=== PATIENT | male | born 1955 | race African-American/Black ===

== ENCOUNTER 2020-07-19 16:31 | Emergency (ER) | payer MEDICAID, OTHER ==
[~2020-07-19] VITALS: Ht 182.9 cm; Wt 93.9 kg
[2020-07-19] MEDS ORDERED: ASPirin 81 mg TAB PO ONE (16:45)
[2020-07-19 16:48] VITALS: BP 124/91
[2020-07-19 17:40] LABS: Basophils # (auto) 0.1 10 ^3/uL (0-0.2); Basophils % (auto) 1.2 % (0.0-2.0); Eosinophils # (auto) 0.4 10 ^3/uL (0-0.8); Eosinophils % (auto) 6.9 % (0.0-7.0); Hematocrit 39.4 % (41.0-53.0); Hemoglobin 13.1 g/dL (13.5-17.5); Lymphocytes # (auto) 1.7 10 ^3/uL (0.4-5.4); Lymphocytes % (auto) 31.8 % (10.0-50.0); Mean Corpuscular Hemoglobin 30.3 pg (28.0-32.0); Mean Corpuscular Hgb Conc. 33.2 g/dL (32.0-36.0); Mean Corpuscular Volume 91.4 fL (80.0-100.0); Monocytes # (auto) 0.3 10 ^3/uL (0-1.3); Monocytes % (auto) 6.2 % (0.0-12.0); Neutrophils # (auto) 2.8 10 ^3/uL (1.6-8.6); Neutrophils % (auto) 53.9 % (37.0-80.0); Nucleated Red Blood Cells % 0.1 %; Platelet Count (auto) 188 10^3/uL (140-450); Red Blood Cells 4.31 10^6/uL (4.5-5.90); Red Cell Distribution Width 13.3 % (11.8-14.3); White Blood Cell 5.2 10^3/uL (4.4-10.8)
[2020-07-19 17:59] LABS: Albumin 3.6 g/dL (3.4-5.0); Anion Gap 3 (5-15); Blood Urea Nitrogen 19 mg/dL (7-18); Calcium 8.4 mg/dL (8.5-10.1); Carbon Dioxide 31 mmol/L (21-32); Chloride 106 mmol/L (98-107); Glucose 110 mg/dL (74-106); Sodium 140 mmol/L (136-145)
[2020-07-19 18:06] LABS: Alanine Aminotransferase 26 U/L (16-61); Alkaline Phosphatase 71 U/L (45-117); Aspartate Aminotransferase 16 U/L (15-37); BUN/Creatinine Ratio 15.2; Bilirubin, Total 0.4 mg/dL (0.2-1.0); GFR African American 75 mL/min; GFR Non-African American 62 mL/min; Total Protein 7.3 g/dL (6.4-8.2)
== END 2020-07-19 19:22 | disposition home or self-care (01) ==
LOC: ER 16:31
DX: R07.89 Other chest pain (principal); I10 Essential (primary) hypertension
CPT/HCPCS: 36415; 71046; 80053; 83880; 84484; 85025; 85379; 93005

== ENCOUNTER 2020-08-13 05:40 | Emergency (ER) | payer MEDICAID ==
[~2020-08-13] VITALS: Ht 182.9 cm; Wt 93.9 kg
[2020-08-13 07:34] VITALS: BP 148/107
== END 2020-08-13 07:44 | disposition home or self-care (01) ==
LOC: ER 05:40
DX: R06.02 Shortness of breath (principal); I10 Essential (primary) hypertension; Z20.822 Contact with and (suspected) exposure to COVID-19
CPT/HCPCS: 36415; 71045; 87426; 99284; C9803; U0003

== ENCOUNTER 2020-09-09 10:09 | Inpatient (IN) | payer MEDICAID ==
[~2020-09-09] VITALS: Ht 182.9 cm; Wt 93.3 kg
[2020-09-09] MEDS ORDERED: methylPREDNISolone SOD SUCC 125 MG/2 ML VL IV ONE (10:15)
[2020-09-09 10:35] LABS: Basophils # (auto) 0.1 10 ^3/uL (0-0.2); Basophils % (auto) 1.1 % (0.0-2.0); Eosinophils # (auto) 0.2 10 ^3/uL (0-0.8); Eosinophils % (auto) 3.6 % (0.0-7.0); Hematocrit 43.2 % (41.0-53.0); Hemoglobin 14.4 g/dL (13.5-17.5); Lymphocytes # (auto) 1.6 10 ^3/uL (0.4-5.4); Lymphocytes % (auto) 24.7 % (10.0-50.0); Mean Corpuscular Hemoglobin 30.5 pg (28.0-32.0); Mean Corpuscular Hgb Conc. 33.3 g/dL (32.0-36.0); Mean Corpuscular Volume 91.6 fL (80.0-100.0); Monocytes # (auto) 0.4 10 ^3/uL (0-1.3); Monocytes % (auto) 6.3 % (0.0-12.0); Neutrophils % (auto) 64.3 % (37.0-80.0); Nucleated Red Blood Cells % 0.2 %; Red Blood Cells 4.71 10^6/uL (4.5-5.90); Red Cell Distribution Width 13.4 % (11.8-14.3); White Blood Cell 6.3 10^3/uL (4.4-10.8)
[2020-09-09 11:08] LABS: Albumin 3.6 g/dL (3.4-5.0); Anion Gap 5 (5-15); Blood Urea Nitrogen 18 mg/dL (7-18); Calcium 8.2 mg/dL (8.5-10.1); Carbon Dioxide 27 mmol/L (21-32); Chloride 105 mmol/L (98-107); GFR African American 72 mL/min; GFR Non-African American 60 mL/min; Glucose 107 mg/dL (74-106); Potassium 3.9 mmol/L (3.5-5.1); Sodium 137 mmol/L (136-145)
[2020-09-09 11:13] LABS: Alanine Aminotransferase 46 U/L (16-61); Alkaline Phosphatase 75 U/L (45-117); Aspartate Aminotransferase 21 U/L (15-37); Bilirubin, Total 0.9 mg/dL (0.2-1.0); Total Protein 7.4 g/dL (6.4-8.2)
[2020-09-09] MEDS ORDERED: FUROSEMIDE 40 MG/4 ML VIAL IV ONE (12:30)
[2020-09-09] MEDS ORDERED: ONDANSETRON HCL 4 MG/2 ML VIAL IV PRN (14:30)
[2020-09-09] MEDS ORDERED: NITROGLYCERIN 0.4 MG SL TAB SL PRN (14:30)
[2020-09-09] MEDS ORDERED: MORPHINE SULFATE INJECTION 2 MG/ML SYRG IV PRN (14:30)
[2020-09-09] MEDS ORDERED: TEMAZEPAM 15 MG CAP PO PRN (14:30)
[2020-09-09] MEDS ORDERED: SODIUM CHLORIDE 0.9% 1,000 ML IV SCH (14:30)
[2020-09-09] MEDS ORDERED: ACETAMINOPHEN 325 MG TAB PO PRN (14:30)
[2020-09-09 15:46] LABS: Urine Bacteria FEW /hpf (None Seen); Urine Blood Negative /uL (Negative); Urine Mucus FEW (None Seen); Urine Specific Gravity 1.025 (1.001-1.035); Urine WBC <1 /hpf (0 - 3)
[2020-09-09] MEDS ORDERED: cloNIDine HCL 0.1 MG TAB PO PRN (16:15)
[2020-09-09] MEDS: PIPERACILLIN-TAZOB 3.375GM 100 ML IV SCH ×2 (18:12→23:59)
[2020-09-09] MEDS: FUROSEMIDE 20 MG/2 ML VIAL IV SCH (18:12)
[2020-09-09 18:24] LABS: Amphetamine Screen, Urine NEGATIVE (NEGATIVE); Barbiturate Scree,Urine NEGATIVE (NEGATIVE); Benzodiazephine Screen, Urine NEGATIVE (NEGATIVE); Cannabinoid Screen, Urine NEGATIVE (NEGATIVE); Cocaine Screen, Urine NEGATIVE (NEGATIVE); Opiate Scree,Urine NEGATIVE (NEGATIVE); Phencyclidine Screen, Urine NEGATIVE (NEGATIVE)
[2020-09-09] MEDS: BUDESONIDE (INHALATION) 0.5 MG/2 ML NEB NEB SCH (18:54)
[2020-09-09] MEDS ORDERED: FAMOTIDINE 20 MG TAB PO SCH (22:00)
[2020-09-09] MEDS: POTASSIUM CHLORIDE 8 MEQ TAB PO SCH (22:26)
[2020-09-09] MEDS: ASCORBIC ACID 500 MG TAB PO SCH (22:26)
[2020-09-09] MEDS: methylPREDNISolone SOD SUCC 40 MG/ML VL IV SCH (22:27)
[2020-09-09 22:48] VITALS: BP 129/81
[2020-09-09 22:56] VITALS: BP 129/81
[2020-09-10] MEDS ORDERED: AMLO-496 PO (03:27)
[2020-09-10] MEDS: FUROSEMIDE 20 MG/2 ML VIAL IV SCH ×2 (05:30→17:52)
[2020-09-10] MEDS: PIPERACILLIN-TAZOB 3.375GM 100 ML IV SCH ×3 (05:31→17:53)
[2020-09-10 05:45] VITALS: BP 115/69
[2020-09-10 06:36] LABS: Basophils # (auto) 0 10 ^3/uL (0-0.2); Basophils % (auto) 0.3 % (0.0-2.0); Eosinophils # (auto) 0 10 ^3/uL (0-0.8); Hematocrit 39.7 % (41.0-53.0); Hemoglobin 13.3 g/dL (13.5-17.5); Lymphocytes # (auto) 0.6 10 ^3/uL (0.4-5.4); Lymphocytes % (auto) 8.3 % (10.0-50.0); Mean Corpuscular Hemoglobin 30.5 pg (28.0-32.0); Mean Corpuscular Hgb Conc. 33.5 g/dL (32.0-36.0); Mean Corpuscular Volume 90.9 fL (80.0-100.0); Monocytes # (auto) 0.1 10 ^3/uL (0-1.3); Monocytes % (auto) 1.8 % (0.0-12.0); Neutrophils # (auto) 6.2 10 ^3/uL (1.6-8.6); Neutrophils % (auto) 89.6 % (37.0-80.0); Red Blood Cells 4.37 10^6/uL (4.5-5.90); Red Cell Distribution Width 13.9 % (11.8-14.3); White Blood Cell 6.9 10^3/uL (4.4-10.8)
[2020-09-10 06:56] LABS: Potassium 3.6 mmol/L (3.5-5.1)
[2020-09-10 07:13] LABS: Albumin 3.1 g/dL (3.4-5.0); BUN/Creatinine Ratio 19.4; Bilirubin, Total 0.7 mg/dL (0.2-1.0); Calcium 7.9 mg/dL (8.5-10.1); Total Protein 6.7 g/dL (6.4-8.2)
[2020-09-10 08:00] VITALS: BP 121/64
[2020-09-10 08:54] VITALS: BP 112/85
[2020-09-10] MEDS: methylPREDNISolone SOD SUCC 40 MG/ML VL IV SCH ×2 (09:09→22:26)
[2020-09-10] MEDS: ASPirin 81 mg TAB PO SCH (09:10)
[2020-09-10] MEDS: POTASSIUM CHLORIDE 8 MEQ TAB PO SCH ×2 (09:10→22:26)
[2020-09-10] MEDS: FAMOTIDINE 20 MG TAB PO SCH (09:11)
[2020-09-10] MEDS: ASCORBIC ACID 500 MG TAB PO SCH (09:12)
[2020-09-10] MEDS: ENOXAPARIN SOD 40 MG/0.4 ML SYRINGE SC SCH (09:12)
[2020-09-10] MEDS ORDERED: ENOXAPARIN SOD 30 MG/0.3 ML SYRINGE SC SCH (10:00)
[2020-09-10] MEDS ORDERED: ZINC SULFATE 220mg CAP or TAB PO SCH (10:00)
[2020-09-10] MEDS: BUDESONIDE (INHALATION) 0.5 MG/2 ML NEB NEB SCH ×2 (10:13→19:09)
[2020-09-10] MEDS ORDERED: POTASSIUM CHL 20 Meq TABLET PO ONE (12:30)
[2020-09-10 13:00] VITALS: BP_SYST 121; BP_SYST 127; BP_DIAS 64; BP_DIAS 71
[2020-09-10 17:00] VITALS: BP 114/69
[2020-09-10 21:00] VITALS: BP 107/74
[2020-09-11] MEDS: PIPERACILLIN-TAZOB 3.375GM 100 ML IV SCH ×3 (00:11→12:36)
[2020-09-11 05:00] VITALS: BP 114/82
[2020-09-11] MEDS: FUROSEMIDE 20 MG/2 ML VIAL IV SCH (05:35)
[2020-09-11] MEDS: BUDESONIDE (INHALATION) 0.5 MG/2 ML NEB NEB SCH (06:12)
[2020-09-11 06:58] LABS: Potassium 4.3 mmol/L (3.5-5.1)
[2020-09-11 07:08] LABS: BUN/Creatinine Ratio 18.3; Calcium 8.7 mg/dL (8.5-10.1); Magnesium 2.5 mg/dL (1.6-2.6)
[2020-09-11 09:00] VITALS: BP 118/88
[2020-09-11] MEDS: ASPirin 81 mg TAB PO SCH (10:01)
[2020-09-11] MEDS: methylPREDNISolone SOD SUCC 40 MG/ML VL IV SCH (10:01)
[2020-09-11] MEDS: FAMOTIDINE 20 MG TAB PO SCH (10:01)
[2020-09-11] MEDS: ENOXAPARIN SOD 40 MG/0.4 ML SYRINGE SC SCH (10:01)
[2020-09-11] MEDS: POTASSIUM CHLORIDE 8 MEQ TAB PO SCH (10:01)
[2020-09-11 13:00] VITALS: BP 121/86
[2020-09-11] MEDS ORDERED: FURO1TAB31 PO (13:47)
[2020-09-11] MEDS ORDERED: SPIR25TA PO (13:47)
[2020-09-11] MEDS ORDERED: ALBU108A5 IN (13:47)
[2020-09-11] MEDS ORDERED: ATOR20TA50 PO (13:47)
[2020-09-11] MEDS ORDERED: ASPI1TAB20 PO (13:47)
[2020-09-11] MEDS ORDERED: CAR3125T PO (13:47)
[2020-09-11 17:00] VITALS: BP 118/85
[2020-12-02] MEDS ORDERED: FURO1TAB31 PO (17:17)
== END 2020-09-11 18:00 | disposition home or self-care (01) | DRG 139 ==
LOC: ER 10:09 → TELE 10:10 → DOU IN ADS 20:23
PROVIDERS: ADMIT Hospitalist; ATTEND Hospitalist
DX: J18.9 Pneumonia, unspecified organism (principal); I50.43 Acute on chronic combined systolic (congestive) and diastolic (congestive) heart failure; I11.0 Hypertensive heart disease with heart failure; I43 Cardiomyopathy in diseases classified elsewhere; J91.8 Pleural effusion in other conditions classified elsewhere; Z20.822 Contact with and (suspected) exposure to COVID-19; R06.03 Acute respiratory distress; Z80.9 Family history of malignant neoplasm, unspecified; Z82.49 Family history of ischemic heart disease and other diseases of the circulatory system; Z83.3 Family history of diabetes mellitus
CPT/HCPCS: 36415; 71250; 80048; 80053; 80307; 81001; 83735; 83880; 84484; 85025; 87086; 87426; 93005; 93306; 94640; 96361; 96365; 96375; G0378; G0463; J2543

== ENCOUNTER 2020-10-31 22:03 | Inpatient (IN) | payer MEDICAID ==
[~2020-10-31] VITALS: Ht 182.9 cm; Wt 88.4 kg
[~2020-10-31 22:03] MED LIST: ALBU108A5 IN; ASPI-231 PO; ATOR20TA50 PO; CAR3125T PO; FURO1TAB31 PO; SPIR25TA PO
[2020-10-31 23:25] LABS: Basophils # (auto) 0.1 10 ^3/uL (0-0.2); Basophils % (auto) 1.2 % (0.0-2.0); Eosinophils # (auto) 0.3 10 ^3/uL (0-0.8); Hematocrit 43.3 % (41.0-53.0); Hemoglobin 14.2 g/dL (13.5-17.5); Lymphocytes # (auto) 1.2 10 ^3/uL (0.4-5.4); Lymphocytes % (auto) 20.4 % (10.0-50.0); Mean Corpuscular Hemoglobin 29.9 pg (28.0-32.0); Mean Corpuscular Hgb Conc. 32.9 g/dL (32.0-36.0); Monocytes # (auto) 0.4 10 ^3/uL (0-1.3); Monocytes % (auto) 6.9 % (0.0-12.0); Neutrophils # (auto) 3.9 10 ^3/uL (1.6-8.6); Neutrophils % (auto) 66.5 % (37.0-80.0); Nucleated Red Blood Cells % 0.3 %; Platelet Count (auto) 202 10^3/uL (140-450); Red Blood Cells 4.76 10^6/uL (4.5-5.90); Red Cell Distribution Width 14.1 % (11.8-14.3); White Blood Cell 5.8 10^3/uL (4.4-10.8)
[2020-10-31 23:41] LABS: INR 1.1 (0.9-1.15); Partial Thromboplastin Time 28.5 sec (23.0-31.2)
[2020-10-31 23:42] LABS: Albumin 3.9 g/dL (3.4-5.0); Anion Gap 6 (5-15); BUN/Creatinine Ratio 17.8; Blood Urea Nitrogen 24 mg/dL (7-18); Calcium 8.8 mg/dL (8.5-10.1); Carbon Dioxide 28 mmol/L (21-32); Chloride 103 mmol/L (98-107); GFR African American 69 mL/min; GFR Non-African American 57 mL/min; Glucose 102 mg/dL (74-106); Magnesium 2.6 mg/dL (1.6-2.6); Potassium 4.5 mmol/L (3.5-5.1); Sodium 137 mmol/L (136-145)
[2020-10-31 23:47] LABS: Alanine Aminotransferase 91 U/L (16-61); Alkaline Phosphatase 89 U/L (45-117); Aspartate Aminotransferase 30 U/L (15-37); Bilirubin, Total 1.2 mg/dL (0.2-1.0); Total Protein 7.4 g/dL (6.4-8.2)
[2020-10-31 23:55] LABS: Urine Bacteria FEW /hpf (None Seen); Urine Blood 1+ /uL (Negative); Urine Hyaline Cast FEW /lpf (0 - 2); Urine Mucus FEW (None Seen); Urine Specific Gravity 1.024 (1.001-1.035); Urine Sperm PRESENT /hpf (None Seen); Urine WBC 2 /hpf (0 - 3)
[2020-11-01] MEDS ORDERED: FUROSEMIDE 40 MG/4 ML VIAL IV ONE (04:30)
[2020-11-01] MEDS ORDERED: MORPHINE SULFATE 4 MG/ML SYR/VIAL IV PRN (06:45)
[2020-11-01] MEDS ORDERED: ONDANSETRON HCL 4 MG/2 ML VIAL IV PRN (06:45)
[2020-11-01] MEDS ORDERED: ACETAMINOPHEN 500 MG TAB PO PRN (06:45)
[2020-11-01] MEDS ORDERED: NITROGLYCERIN 0.4 MG SL TAB SL PRN (06:45)
[2020-11-01] MEDS ORDERED: MORPHINE SULF INJ 2 MG/ML SYRINGE 1ML IV PRN (06:45)
[2020-11-01] MEDS ORDERED: BUMETANIDE 2.5mg/10ml (0.25 mg/ml) INJ IV ONE (08:15)
[2020-11-01] MEDS: POTASSIUM CHL 10 Meq TABLET PO SCH ×2 (09:24→21:45)
[2020-11-01] MEDS ORDERED: FUROSEMIDE 40 MG/4 ML VIAL IV SCH (10:00)
[2020-11-01] MEDS: ENALAPRIL MALEATE 2.5 MG TAB PO SCH (10:50)
[2020-11-01] MEDS: CARVEDILOL 3.125 MG TAB PO SCH ×2 (10:50→21:44)
[2020-11-01] MEDS: FUROSEMIDE 40 MG/4 ML VIAL IV SCH (18:28)
[2020-11-01 22:00] VITALS: BP 92/68
[2020-11-02 05:00] VITALS: BP 97/71
[2020-11-02 05:55] LABS: Basophils # (auto) 0.1 10 ^3/uL (0-0.2); Basophils % (auto) 0.8 % (0.0-2.0); Eosinophils # (auto) 0.3 10 ^3/uL (0-0.8); Eosinophils % (auto) 4.3 % (0.0-7.0); Hematocrit 41.3 % (41.0-53.0); Hemoglobin 13.9 g/dL (13.5-17.5); Lymphocytes # (auto) 1.4 10 ^3/uL (0.4-5.4); Lymphocytes % (auto) 19.6 % (10.0-50.0); Mean Corpuscular Hemoglobin 30.4 pg (28.0-32.0); Mean Corpuscular Hgb Conc. 33.6 g/dL (32.0-36.0); Mean Corpuscular Volume 90.6 fL (80.0-100.0); Monocytes # (auto) 0.7 10 ^3/uL (0-1.3); Monocytes % (auto) 9.4 % (0.0-12.0); Neutrophils # (auto) 4.6 10 ^3/uL (1.6-8.6); Neutrophils % (auto) 65.9 % (37.0-80.0); Nucleated Red Blood Cells % 0.1 %; Platelet Count (auto) 170 10^3/uL (140-450); Red Blood Cells 4.56 10^6/uL (4.5-5.90); Red Cell Distribution Width 13.8 % (11.8-14.3)
[2020-11-02] MEDS: FUROSEMIDE 40 MG/4 ML VIAL IV SCH (06:00)
[2020-11-02 06:10] LABS: Calcium 8.9 mg/dL (8.5-10.1); INR 1.13 (0.9-1.15); Potassium 3.7 mmol/L (3.5-5.1)
[2020-11-02 06:12] LABS: BUN/Creatinine Ratio 23.5
[2020-11-02] MEDS ORDERED: IODIXANOL 320MG/ML 100ML BTL IV ONE ×2 (07:49→09:37)
[2020-11-02 09:00] VITALS: BP 113/76
[2020-11-02] MEDS ORDERED: ANGIOMAX 250 MG VIAL IV ONE (09:32)
[2020-11-02] MEDS ORDERED: HEPARIN SODIUM (PORCINE) 5000 UNITS/ML 1ML VIAL ONE (09:32)
[2020-11-02] MEDS ORDERED: SODIUM CHL 0.9% 50 ML ONE (09:33)
[2020-11-02] MEDS ORDERED: MIDAZOLAM HCL 1MG/1ML-2 ML VIAL ONE (09:33)
[2020-11-02] MEDS ORDERED: VERAPAMIL 2.5MG/ML INJ 2ML VIAL IV ONE (09:33)
[2020-11-02] MEDS ORDERED: fentaNYL CITRATE 100 MCG/2 ML VL ONE (09:33)
[2020-11-02] MEDS ORDERED: LIDOCAINE 2%HCL (LOCAL ANESTH.) INJ 20ML MDV ONE (09:37)
[2020-11-02] MEDS ORDERED: metOLazone 5 MG TAB PO ONE (11:15)
[2020-11-02 13:00] VITALS: BP 106/77
[2020-11-02] MEDS: POTASSIUM CHL 10 Meq TABLET PO SCH (13:34)
[2020-11-02] MEDS: CARVEDILOL 3.125 MG TAB PO SCH (13:34)
[2020-11-02] MEDS: ENALAPRIL MALEATE 2.5 MG TAB PO SCH (13:35)
[2020-11-02] MEDS ORDERED: ENAL2.5T7 PO (15:59)
[2020-11-02 16:55] VITALS: BP 100/70
[2020-11-02 17:00] VITALS: BP 95/71
[2020-11-03] MEDS ORDERED: SPIRONOLACTONE 25 MG TAB PO SCH (10:00)
== END 2020-11-02 19:00 | disposition home or self-care (01) | DRG 192 ==
LOC: ER 22:03 → TELE 11-01 06:31 → TELE-WESTW 11-01 17:11
PROVIDERS: ADMIT Hospitalist; ATTEND Hospitalist
PROC: 0W993ZZ Drainage of Right Pleural Cavity, Percutaneous Approach (ICD-10-PCS; 2020-11-01)
PROC: 4A023N7 Measurement of Cardiac Sampling and Pressure, Left Heart, Percutaneous Approach (ICD-10-PCS; principal; 2020-11-02)
PROC: 0W9B3ZZ Drainage of Left Pleural Cavity, Percutaneous Approach (ICD-10-PCS; 2020-11-02)
PROC: B2111ZZ Fluoroscopy of Multiple Coronary Arteries using Low Osmolar Contrast (ICD-10-PCS; 2020-11-02)
DX: I13.0 Hypertensive heart and chronic kidney disease with heart failure and stage 1 through stage 4 chronic kidney disease, or unspecified chronic kidney disease (principal); J91.8 Pleural effusion in other conditions classified elsewhere; I42.8 Other cardiomyopathies; I50.23 Acute on chronic systolic (congestive) heart failure; K59.00 Constipation, unspecified; N18.9 Chronic kidney disease, unspecified; Z20.822 Contact with and (suspected) exposure to COVID-19; Z82.49 Family history of ischemic heart disease and other diseases of the circulatory system; Z83.3 Family history of diabetes mellitus; Z80.42 Family history of malignant neoplasm of prostate
CPT/HCPCS: 10022; 36415; 71045; 71046; 74176; 76604; 76942; 80048; 80053; 81001; 83615; 83735; 83880; 83986; 84484; 85025; 85610; 85730; 86850; 86900; 86901; 87070; 87426; 89051; 93005; 93458; 96374; 96375; 96376; 99152; G0378; J2250; Q9967

== ENCOUNTER 2021-05-31 06:25 | Emergency (ER) | payer MEDICAID ==
[~2021-05-31] VITALS: Ht 182.9 cm; Wt 90.7 kg
[~2021-05-31 06:25] MED LIST changes: -ASPI-231 PO; +ASPI1TAB20 PO; +ENAL2.5T7 PO
[2021-05-31 22:01] LABS: Basophils # (auto) 0.1 10 ^3/uL (0-0.2); Basophils % (auto) 1.6 % (0.0-2.0); Eosinophils # (auto) 0.6 10 ^3/uL (0-0.8); Eosinophils % (auto) 12.6 % (0.0-7.0); Hematocrit 42.3 % (41.0-53.0); Hemoglobin 13.4 g/dL (13.5-17.5); Lymphocytes # (auto) 1.1 10 ^3/uL (0.4-5.4); Lymphocytes % (auto) 22.8 % (10.0-50.0); Mean Corpuscular Hemoglobin 29.8 pg (28.0-32.0); Mean Corpuscular Hgb Conc. 31.7 g/dL (32.0-36.0); Mean Corpuscular Volume 93.9 fL (80.0-100.0); Monocytes # (auto) 0.4 10 ^3/uL (0-1.3); Neutrophils # (auto) 2.5 10 ^3/uL (1.6-8.6); Nucleated Red Blood Cells % 0.1 %; Red Cell Distribution Width 14.1 % (11.8-14.3); White Blood Cell 4.6 10^3/uL (4.4-10.8)
[2021-05-31 22:18] LABS: INR 1.08 (0.9-1.15)
[2021-05-31 22:19] LABS: Albumin 3.5 g/dL (3.4-5.0); BUN/Creatinine Ratio 17.1; Calcium 8.4 mg/dL (8.5-10.1); Magnesium 2.9 mg/dL (1.6-2.6)
[2021-05-31 22:24] LABS: Bilirubin, Total 0.6 mg/dL (0.2-1.0); Total Protein 7.4 g/dL (6.4-8.2)
[2021-06-01] MEDS ORDERED: DOXYCYCLINE 100 MG TAB/CAP PO SCH (10:30)
[2021-06-01] MEDS ORDERED: ALBUTEROL SULF HFA 90MCG INH 200DOSE IN PRN (10:30)
[2021-06-01] MEDS ORDERED: ASPirin 81 mg TAB PO ONE (10:30)
[2021-06-01] MEDS ORDERED: FUROSEMIDE 40 MG/4 ML VIAL IV ONE (10:30)
[2021-06-01] MEDS ORDERED: ATORVASTATIN 20 MG TAB PO ONE (10:30)
[2021-06-01] MEDS ORDERED: POTASSIUM CHL 20MEQ/100ML 100 ML IV ONE ×2 (10:30→13:45)
[2021-06-01] MEDS ORDERED: FUROSEMIDE 40 MG/4 ML VIAL ONE (11:30)
[2021-06-01 15:08] VITALS: BP 117/82
[2021-06-01] MEDS ORDERED: DOXY-338 PO (15:55)
[2021-06-01] MEDS ORDERED: FUROSEMIDE 40 MG TAB PO SCH (22:00)
[2021-06-01] MEDS ORDERED: CARVEDILOL 3.125 MG TAB PO SCH (22:00)
[2021-06-02] MEDS ORDERED: ATORVASTATIN 20 MG TAB PO SCH (10:00)
[2021-06-02] MEDS ORDERED: ASPirin-EC 81 mg tab PO SCH (10:00)
[2021-06-02] MEDS ORDERED: SPIRONOLACTONE 25 MG TAB PO SCH (10:00)
[2021-06-02] MEDS ORDERED: ENALAPRIL MALEATE 2.5 MG TAB PO SCH (10:00)
== END 2021-06-01 00:56 | disposition left against medical advice (07) ==
LOC: ER 19:01
DX: J18.9 Pneumonia, unspecified organism (principal); R07.89 Other chest pain; I11.0 Hypertensive heart disease with heart failure; I50.9 Heart failure, unspecified; I43 Cardiomyopathy in diseases classified elsewhere; Z20.822 Contact with and (suspected) exposure to COVID-19; Z53.29 Procedure and treatment not carried out because of patient's decision for other reasons
CPT/HCPCS: 36415; 71045; 80053; 83735; 83880; 84484; 85025; 85610; 87426; 93005; 96374; 99285; J1940

== ENCOUNTER 2022-02-28 18:22 | Emergency (ER) | payer MEDICAID ==
[~2022-02-28] VITALS: Ht 182.9 cm; Wt 90.3 kg
[~2022-02-28 18:22] MED LIST changes: +DOXY-338 PO
[2022-02-28 18:41] VITALS: BP 137/79
[2022-02-28 20:04] LABS: Basophils # (auto) 0 10 ^3/uL (0-0.2); Basophils % (auto) 0.3 % (0.0-2.0); Eosinophils # (auto) 0.7 10 ^3/uL (0-0.8); Eosinophils % (auto) 12.8 % (0.0-7.0); Hematocrit 41.1 % (41.0-53.0); Lymphocytes # (auto) 1.3 10 ^3/uL (0.4-5.4); Lymphocytes % (auto) 25.1 % (10.0-50.0); Mean Corpuscular Hemoglobin 29.9 pg (28.0-32.0); Mean Corpuscular Hgb Conc. 31.7 g/dL (32.0-36.0); Mean Corpuscular Volume 94.3 fL (80.0-100.0); Monocytes # (auto) 0.4 10 ^3/uL (0-1.3); Monocytes % (auto) 8.1 % (0.0-12.0); Neutrophils # (auto) 2.8 10 ^3/uL (1.6-8.6); Neutrophils % (auto) 53.7 % (37.0-80.0); Nucleated Red Blood Cells % 0.1 %; Red Blood Cells 4.36 10^6/uL (4.5-5.90); Red Cell Distribution Width 13.7 % (11.8-14.3); White Blood Cell 5.2 10^3/uL (4.4-10.8)
[2022-02-28 20:23] LABS: Albumin 3.6 g/dL (3.4-5.0); BUN/Creatinine Ratio 16.3; Calcium 8.2 mg/dL (8.5-10.1); Potassium 4.1 mmol/L (3.5-5.1)
[2022-02-28 20:25] LABS: Bilirubin, Total 0.4 mg/dL (0.2-1.0); Total Protein 7.3 g/dL (6.4-8.2)
== END 2022-03-01 03:50 | disposition left against medical advice (07) ==
LOC: ER 18:22
DX: R07.89 Other chest pain (principal); I11.0 Hypertensive heart disease with heart failure; I50.9 Heart failure, unspecified; E78.5 Hyperlipidemia, unspecified; Z53.29 Procedure and treatment not carried out because of patient's decision for other reasons
CPT/HCPCS: 36415; 71045; 80053; 83880; 84484; 85025; 93005

== ENCOUNTER 2023-10-09 11:46 | Emergency (ER) | payer MEDICARE, MEDICAID ==
[~2023-10-09] VITALS: Ht 182.9 cm; Wt 92.3 kg
[~2023-10-09 11:46] MED LIST changes: -DOXY-338 PO; +DOXY-447 PO; +ENAL1TAB42 PO; -ENAL2.5T7 PO
[2023-10-09 11:56] VITALS: TEMP 99
[2023-10-09 12:04] VITALS: BP 127/69; PULSE 74; RESP 17; O2SAT 98
== END 2023-10-09 14:40 | disposition home or self-care (01) ==
LOC: ER 11:46
DX: B34.9 Viral infection, unspecified (principal); I11.0 Hypertensive heart disease with heart failure; I50.9 Heart failure, unspecified; E78.5 Hyperlipidemia, unspecified
CPT/HCPCS: 71046